=== PATIENT | male | born 1975 | race Two or more races ===

== ENCOUNTER 2023-02-27 12:30 | Inpatient (IN) | payer OTHER ==
[~2023-02-27] VITALS: Ht 175.3 cm; Wt 90.7 kg
[2023-02-27] MEDS ORDERED: LIPITOR20 MG PO (15:00)
[2023-02-27] MEDS ORDERED: CARDURA8 MG PO (15:07)
[2023-02-27] MEDS ORDERED: MONOXIDIL PO (15:08)
[2023-02-27] MEDS ORDERED: HYDRALAZINE HC100 MG PO (15:08)
[2023-03-09] MEDS ORDERED: METRONIDAZOLE/SODIUM CHLORIDE 500 MG/100 ML PIGGYBACK IV ONE ×4 (12:18→20:35)
[2023-03-09] MEDS ORDERED: CEFTRIAXONE SODIUM 2,000 MG VIAL ONE ×2 (12:18→16:21)
[2023-03-09] MEDS ORDERED: POVIDONE-IODINE 118 ML BOTT TOP ONE ×3 (14:32→17:45)
[2023-03-09] MEDS ORDERED: BUPIVACAINE HCL/PF 0.5% 1ML ONE (14:32)
[2023-03-09] MEDS ORDERED: LIDOCAINE HCL/EPINEPHRINE 20 ML VIAL IJ ONE ×2 (14:32→16:21)
[2023-03-09] MEDS ORDERED: DIBUCAINE 30 GM TUBE ONE ×2 (14:32→18:32)
[2023-03-09] MEDS ORDERED: HEMOSTATIC MATRIX 1 KIT KIT TOP ONE ×3 (14:32→19:15)
[2023-03-09] MEDS ORDERED: BUPIVACAINE HCL/PF 0.5% 30ML ML ONE (16:21)
[2023-03-09] MEDS ORDERED: ATORVASTATIN CA40 MG (16:31)
[2023-03-09] MEDS ORDERED: SEVELAMER CARB800 MG (16:31)
[2023-03-09] MEDS ORDERED: OMEPRAZOLE40 MG (16:31)
[2023-03-09] MEDS ORDERED: LONITEN2.5 MG (16:31)
[2023-03-09] MEDS ORDERED: FLONASE16 GM (16:32)
[2023-03-09] MEDS ORDERED: ONDANSETRON HCL 2 MG/ML VIAL IV PRN (17:15)
[2023-03-09] MEDS ORDERED: OxyCODONE HCL 5 MG TABLET (ROXICODONE) PO PRN (17:15)
[2023-03-09] MEDS ORDERED: MORPHINE SULFATE 4 MG/ML VIAL IV PRN (17:15)
[2023-03-09] MEDS ORDERED: DEXTROSE 50 % IN WATER 0.5 G/ML DISP.SYRIN IV PRN (17:15)
[2023-03-09] MEDS ORDERED: RINGERS SOLUTION,LACTATED 1,000 ML IV SCH (17:15)
[2023-03-09] MEDS ORDERED: INSULIN LISPRO 1,000 UNIT/10 ML UNITS SUBCUTANEO PRN (17:15)
[2023-03-09] MEDS ORDERED: CEFTRIAXONE SODIUM 2,000 MG VIAL IV ONE (17:45)
[2023-03-09] MEDS ORDERED: DIBUCAINE 15 GM OINT..GM. TUBE RECTAL ONE (19:15)
[2023-03-09] MEDS ORDERED: ACETAMINOPHEN 500 MG GEL..CAP PO SCH (20:00)
[2023-03-09 20:28] LABS: HEMATOCRIT 34.2 % (39.0-48.0); HEMOGLOBIN 11.4 g/dL (13-16.00); MEAN CELL VOLUME 85.9 fL (80.0-100.00); MEAN CORPUSCULAR HEMOGLOBIN 28.7 pg (27.00-32.0); MEAN CORPUSCULAR HGB CONC 33.4 g/dl (32.0-36.0); PLATELET COUNT 171 K/uL (150-450); RED BLOOD COUNT 3.98 M/uL (4.00-6.00); RED CELL DISTRIBUTION WIDTH 17.1 % (11.5-14.5)
[2023-03-09] MEDS ORDERED: CIPROFLOXACIN IN 5 % DEXTROSE 400 MG/200 ML PIGGYBAG IV ONE (20:36)
[2023-03-09] MEDS ORDERED: FAMOTIDINE/PF 20 MG/2 ML VIAL ONE (20:36)
[2023-03-09] MEDS ORDERED: CIPROFLOXACIN IN 5 % DEXTROSE 200 ML IV SCH (21:00)
[2023-03-09] MEDS ORDERED: METRONIDAZOLE/SODIUM CHLORIDE 100 ML IV SCH (21:00)
[2023-03-09] MEDS ORDERED: FAMOTIDINE/PF 20 MG/2 ML VIAL IV PUSH SCH (21:00)
[2023-03-09] MEDS ORDERED: CELECOXIB 200 MG CAPSULE PO SCH (21:00)
[2023-03-09 21:39] LABS: RH NEGATIVE
[2023-03-10] MEDS ORDERED: GABAPENTIN 300 MG CAPSULE PO SCH (01:00)
[2023-03-10 07:25] LABS: HEMATOCRIT 30.8 % (39.0-48.0); HEMOGLOBIN 10.5 g/dL (13-16.00); MEAN CELL VOLUME 85.6 fL (80.0-100.00); MEAN CORPUSCULAR HEMOGLOBIN 29.3 pg (27.00-32.0); MEAN CORPUSCULAR HGB CONC 34.2 g/dl (32.0-36.0); PLATELET COUNT 167 K/uL (150-450); RED CELL DISTRIBUTION WIDTH 17.1 % (11.5-14.5)
[2023-03-10 07:50] LABS: ALBUMIN 3.3 gm/dL (3.4-5.0); CALCIUM 9.1 mg/dL (8.5-10.1); GFR 3.63; PHOSPHOROUS 6.5 mg/dL (2.5-4.9); POTASSIUM 4.65 mEq/L (3.5-5.1)
[2023-03-10 08:27] LABS: CREATININE SERUM 14.6 mg/dL (0.70-1.30)
[2023-03-10] MEDS ORDERED: HYOSCYAMINE SULFATE 0.125 MG TAB.SUBL SL SCH (09:00)
[2023-03-10] MEDS ORDERED: CIPROFLOXACIN IN 5 % DEXTROSE 400 MG/200 ML PIGGYBAG IV SCH (09:00)
[2023-03-10] MEDS ORDERED: DOXAZOSIN MESYLATE 8 MG TABLET PO SCH (10:38)
[2023-03-10] MEDS ORDERED: hydrALAZINE HCL 10 MG TABLET PO SCH (10:38)
[2023-03-11] MEDS ORDERED: LEVSIN/SL0.125 MG SL (11:20)
[2023-03-11] MEDS ORDERED: INTESTINEX680 M1 PO (11:20)
== END 2023-03-11 11:49 | disposition home or self-care (01) | DRG 393 ==
LOC: O/R 03-09 10:00 → SURG 03-09 12:30
PROVIDERS: ADMIT Surgery; ATTEND Surgery
PROC: 0DBP7ZX Excision of Rectum, Via Natural or Artificial Opening, Diagnostic (ICD-10-PCS; principal; 2023-03-09 19:00)
PROC: 5A1D70Z Performance of Urinary Filtration, Intermittent, Less than 6 Hours Per Day (ICD-10-PCS; 2023-03-10)
DX: D12.8 Benign neoplasm of rectum (principal); N18.6 End stage renal disease; K62.5 Hemorrhage of anus and rectum; I12.0 Hypertensive chronic kidney disease with stage 5 chronic kidney disease or end stage renal disease; E78.5 Hyperlipidemia, unspecified; Z99.2 Dependence on renal dialysis